=== PATIENT | female | born 1985 | race Caucasian/White ===

== ENCOUNTER 2021-12-25 12:05 | Outpatient (CLI) | payer OTHER, SELFPAY ==
--- NOTE | ~2021-12-25 | US_ITS ---
US axilla RT 12/25/2021 12:21 Indication: Right axillary lump Procedure: High-resolution ultrasound of the right axilla Comparison: No prior studies for comparison. Findings: In the area of palpable concern located superficially in the right axilla there is an oval hypoechoic mass measuring 5 mm with posterior acoustic enhancement and no internal vascularity. Impression: 1: Oval hypoechoic 5 mm mass in the right axilla corresponding to the palpable findings. This has a b enign appearance and most likely represents a lymph node or sebaceous cyst. Short-term follow-up akanksha mmended. BI-RADS CATEGORY 3-PROBABLY BENIGN FINDING RECOMMENDATION: 6 month follow up recommended. Reviewed, dictated and finalized at location A. Impression: 1: Oval hypoechoic 5 mm mass in the right axilla corresponding to the palpable findings. This has a benign appearance and most likely represents a lymph node or sebaceous cyst. Short-term follow-up recommended. BI-RADS CATEGORY 3-PROBABLY BENIGN FINDING RECOMMENDATION: 6 month follow up recommended.
== END 2021-12-25 12:06 ==
LOC: MICIMG 12:07
PROVIDERS: PCP Nurse Practitioner Family; Visit Provider Nurse Practitioner Family
DX: R22.31 Localized swelling, mass and lump, right upper limb (principal)
CPT/HCPCS: 76882